=== PATIENT | male | born 1955 | race Caucasian/White ===

== ENCOUNTER 2018-08-20 10:26 | Emergency (ER) | payer OTHER ==
[~2018-08-20] VITALS: Ht 157.5 cm; Wt 77.6 kg
[2018-08-20 10:29] VITALS: BP 139/100; Ht 157.5 cm; Wt 77.6 kg
== END 2018-08-20 13:16 | disposition home or self-care (01) ==
LOC: ED 10:26
DX: S61.210A Laceration without foreign body of right index finger without damage to nail, initial encounter (principal); S61.012A Laceration without foreign body of left thumb without damage to nail, initial encounter; I10 Essential (primary) hypertension; W54.0XXA Bitten by dog, initial encounter; Y93.89 Activity, other specified; Y92.89 Other specified places as the place of occurrence of the external cause; Y99.8 Other external cause status
CPT/HCPCS: 90715; J2001; J3490

== ENCOUNTER 2018-08-22 14:10 | Emergency (ER) | payer OTHER ==
[~2018-08-22] VITALS: Ht 162.6 cm; Wt 78.0 kg
[2018-08-22 14:17] VITALS: BP 128/86; Ht 162.6 cm; Wt 78.0 kg
== END 2018-08-22 15:23 | disposition home or self-care (01) ==
LOC: ED 14:10
DX: S61.210D Laceration without foreign body of right index finger without damage to nail, subsequent encounter (principal); I10 Essential (primary) hypertension; W54.0XXD Bitten by dog, subsequent encounter

== ENCOUNTER 2018-08-28 08:17 | Emergency (ER) | payer OTHER ==
[~2018-08-28] VITALS: Ht 162.6 cm; Wt 78.0 kg
[2018-08-28 08:23] VITALS: Ht 162.6 cm; Wt 78.0 kg
[2018-08-28 09:21] VITALS: BP 138/84
== END 2018-08-28 09:21 | disposition home or self-care (01) ==
LOC: ED 08:17
DX: S61.210D Laceration without foreign body of right index finger without damage to nail, subsequent encounter (principal); I10 Essential (primary) hypertension; Z98.890 Other specified postprocedural states; W54.0XXD Bitten by dog, subsequent encounter